=== PATIENT | female | born 1965 | race Caucasian/White ===

== ENCOUNTER 2023-11-25 10:39 | Emergency (ER) | payer OTHER ==
[~2023-11-25] VITALS: Ht 160 cm; Wt 77.1 kg
[2023-11-25 10:51] VITALS: BP_SYST 161; PULSE 89; RESP 18; TEMP 97.7; O2SAT 98
[2023-11-25 11:35] LABS: BASOPHILS % (AUTO) 0.7 % (0.0-2.0); EOSINOPHILS % (AUTO) 0.6 % (0.0-4.0); HEMATOCRIT 39.6 % (36-48); HEMOGLOBIN 13.2 g/dL (12.0-16.0); LYMPHOCYTES # (AUTO) 1.6 K/uL (1.0-5.5); LYMPHOCYTES % (AUTO) 26.5 % (20.5-51.5); MEAN CORPUSCULAR HEMOGLOBIN 31 pg (27-31); MEAN CORPUSCULAR HGB CONC 33 % (32-36); MEAN CORPUSCULAR VOLUME 94 fL (79.0-98.0); MONOCYTES # (AUTO) 0.5 K/uL (0.0-1.0); NEUTROPHILS # (AUTO) 3.8 K/uL (1.8-7.7); NEUTROPHILS % (AUTO) 63.2 % (40.0-70.0); PLATELET COUNT (AUTO) 356 K/uL (130-430); RED BLOOD CELL COUNT(AUTO) 4.22 MIL/uL (4.2-6.2); RED CELL DISTRIBUTION WIDTH 13.5 % (9.0-15.0)
[2023-11-25 11:43] LABS: ANION GAP 11 (5-15); CALCIUM 9.1 mg/dL (8.4-11.0); CARBON DIOXIDE 28 mmol/L (23-29); CHLORIDE 105 mmol/L (98-107); CREATININE 0.86 mg/dL (0.55-1.30); GFR AFRICAN AMERICAN 88 mL/min (>90); GLUCOSE 100 mg/dL (74-106); POTASSIUM 3.5 mmol/L (3.5-5.1); SODIUM SERUM 144 mmol/L (136-145); UREA NITROGEN, BLOOD 10 mg/dL (8-21)
[2023-11-25 11:44] LABS: GFR NON AFRICAN-AMERICAN 73 mL/min (>90)
[2023-11-25 13:19] VITALS: BP_SYST 128; PULSE 76; RESP 18; TEMP 97.4; O2SAT 97
== END 2023-11-25 13:20 | disposition home or self-care (01) ==
LOC: EDBD 10:39 → SED 10:39
DX: R55 Syncope and collapse (principal); F12.90 Cannabis use, unspecified, uncomplicated; Z79.899 Other long term (current) drug therapy
CPT/HCPCS: 36415; 70450-TC; 76376; 80048; 84484; 85025; 93005; 99284